=== PATIENT | male | born 2000 | race Hispanic/Latino ===

== ENCOUNTER 2021-08-28 07:13 | Day surgery (SDC) | payer SELFPAY ==
[2021-08-28] MEDS ORDERED: NA CHLORIDE 0.9% 1,000 ML ONE (07:40)
[2021-08-28] MEDS ORDERED: ONDANSETRON 4 MG/2 ML VIAL ONE ×2 (07:40→12:17)
[2021-08-28] MEDS ORDERED: FAMOTIDINE 20 MG/2 ML VIAL IV ONE (07:40)
[2021-08-28 08:00] LABS: Absolute Lymphocytes (CBC) 1.4 K/uL (0.7-4.9); Lymphocytes % 10.6 % (15.3-44.8); MPV 8.3 fL (7.6-11.3); RBC Red Blood Cell Count 4.96 M/uL (4.33-5.43)
[2021-08-28 08:22] LABS: ALT/SGPT 20 U/L (12-78); AST/SGOT 16 U/L (15-37); Albumin 3.9 g/dL (3.4-5.0); Alkaline Phosphatase 83 U/L (45-117); BUN Blood Urea Nitrogen 11 mg/dL (7-18); Bicarbonate 25 mmol/L (21-32); Bilirubin Total 0.5 mg/dL (0.2-1.0); Glucose Level 147 mg/dL (74-106); Lipase 78 U/L (73-393); Potassium 3.4 mmol/L (3.5-5.1); Protein, Total 8.1 g/dL (6.4-8.2); Sodium Level 136 mmol/L (136-145)
[2021-08-28 09:00] LABS: Urine Blood Negative (Negative); Urine Glucose Negative (Negative); Urine Protein Negative (Negative); Urine pH 8.5 (5.0-7.0)
[2021-08-28] MEDS ORDERED: MORPHINE 4 MG/ML SYR ONE ×2 (09:49→13:10)
--- NOTE | 2021-08-28 10:32 | RAD REPORT ---
EXAM DESCRIPTION: CT - Abdomen Pelvis W Contrast - 08/28/2021 9:57 am CLINICAL HISTORY: Abdominal pain COMPARISON: none. TECHNIQUE: Computed axial tomography of the abdomen pelvis was obtained. 100 cc Isovue-300 was admin istered intravenously. Oral contrast was not requested which limits evaluation of bowel. All CT scans are performed using dose optimization technique as appropriate and may include automated exposure control or mA/KV adjustment according to patient size. FINDINGS: The liver, spleen, pancreas, adrenal and kidneys appear unremarkable. There is no evidence of diverticulitis. Stones are present within the appendix. The appendix is dilated. The appendix extends inferiorly and medially from the cecum. No abscess. No significant free fluid. No free air IMPRESSION: Appendicitis
[2021-08-28] MEDS ORDERED: METRONIDAZOLE 500mg IVPB 500 MG/100 ML BAG IV ONE (10:51)
[2021-08-28] MEDS ORDERED: CIPROFLOXACIN 400mg IV 400 MG/200 ML BAG IV ONE (10:51)
--- NOTE | 2021-08-28 11:00 | ER ---
Nurse's Notes [facility] Name: Juanito Jung Age: 21 yrs Sex: Male : 2000 Arrival Date: 08/28/2021 Time: 07:19 Bed 19 [facility] MD: Diagnosis: Unspecified acute appendicitis Presentation: 08/28 07:20 Chief complaint: Patient states: lower abd pain that began at 3 am. Denies aa5 nausea/vomiting/diarrhea. 07:20 Coronavirus screen: At this time, the client does not indicate any symptoms associated aa5 with coronavirus-19. Ebola Screen: No symptoms or risks identified at this time. Initial Sepsis Screen: Does the patient meet any 2 criteria? No. Patient's initial sepsis screen is negative. Does the patient have a suspected source of infection? No. Patient's initial sepsis screen is negative. Risk Assessment: Do you want to hurt yourself or someone else? Patient reports no desire to harm self or others. Onset of symptoms was August 28, 2021. 07:20 Acuity: JOSEFINA 3 aa5 07:20 Method Of Arrival: Ambulatory aa5 Historical: - Allergies: 07:32 No Known Allergies; aa5 - PMHx: 07:32 None; aa5 - PSHx: 07:32 None; aa5 - Immunization history:: Adult Immunizations unknown. - Social history:: Smoking status: Reported history of juuling and/or vaping. Patient uses street drugs, marijuana. Screenin:35 Abuse screen: Denies threats or abuse. Nutritional screening: No deficits noted. ap3 Tuberculosis screening: No symptoms or risk factors identified. Fall Risk No fall in past 12 months (0 pts). No secondary diagnosis (0 pts). IV access (20 points). Ambulatory Aid- None/Bed Rest/Nurse Assist (0 pts). Gait- Normal/Bed Rest/Wheelchair (0 pts) Mental Status- Oriented to own ability (0 pts). Total Rea Fall Scale indicates No Risk (0-24 pts). Assessment: 07:34 General: Appears uncomfortable, Behavior is cooperative. Pain: Complains of pain in ap3 right lower quadrant and left lower quadrant. Neuro: Level of Consciousness is awake, alert, obeys commands, Oriented to person, place, time, situation, Speech is normal. Respiratory: Airway is patent Respiratory effort is even, unlabored, Respiratory pattern is regular, symmetrical. GI: Pt is actively vomiting Reports nausea, vomiting. 07:49 GI: Bowel sounds present X 4 quads. Abd is soft X 4 quads Abd is non tender. : Denies ap3 burning with urination. 08:55 Reassessment: Patient and/or family updated on plan of care and expected duration. Pain ap3 level reassessed. Patient is alert, oriented x 3, equal unlabored respirations, skin warm/dry/pink. patient reports continued abdominal pain. provider notified, new orders received. 10:01 Reassessment: Patient and/or family updated on plan of care and expected duration. Pain ap3 level reassessed. Patient is alert, oriented x 3, equal unlabored respirations, skin warm/dry/pink. 11:15 Reassessment: report given to JESSICA Keating. ap3 11:17 Reassessment: patient transferred to the OR with JESSICA Keating. ap3 Vital Signs: 07:20 BP 140 / 96; Pulse 59; Resp 18 S; Temp 98.3(TE); Pulse Ox 100% on R/A; Weight 70.31 kg aa5 (R); Height 5 ft. 8 in. (172.72 cm) (R); Pain 10/10; 08:13 BP 108 / 75; Pulse 52; Pulse Ox 98% on R/A; ap3 09:02 BP 108 / 75; Pulse 53; Pulse Ox 98% on R/A; ap3 11:14 BP 115 / 84; Pulse 68; Pulse Ox 98% on R/A; ap3 07:20 Body Mass Index 23.57 (70.31 kg, 172.72 cm) aa5 ED Course: 07:19 Patient arrived in ED. ds1 07:20 Arm band placed on Patient placed in an exam room, on a stretcher. aa5 07:22 Marvin Abreu PA is PHCP. jmm 07:22 Amos Mirza DO is Attending Physician. jmm 07:23 Ira Morales, JESSICA is Primary Nurse. ap3 07:32 Triage completed. aa5 07:35 Patient has correct armband on for positive identification. Bed in low position. Call ap3 light in reach. Side rails up X 1. Adult w/ patient. Pulse ox on. NIBP on. Door closed. Noise minimized. 07:43 Inserted saline lock: 20 gauge in right antecubital area, using aseptic technique. ap3 Blood collected. 09:57 CT Abd/Pelvis - IV Contrast Only In Process Unspecified. EDMS 11:00 Morro Mccabe MD is Hospitalizing Provider. jmm Administered Medications: 07:48 Drug: NS 0.9% 1000 ml Route: IV; Rate: 1 bolus; Site: right antecubital; ap3 09:48 Follow up: IV Status: Completed infusion; IV Intake: 1000ml ap3 07:48 Drug: Pepcid (famotidine) 20 mg Route: IVP; Site: right antecubital; ap3 09:01 Follow up: Response: No adverse reaction ap3 07:49 Drug: Zofran (Ondansetron) 4 mg Route: IVP; Site: right antecubital; ap3 09:01 Follow up: Response: No adverse reaction; Nausea is decreased ap3 09:00 Drug: Benadryl (diphenhydrAMINE) 12.5 mg Route: IVP; Site: right antecubital; ap3 09:48 Follow up: Response: No adverse reaction ap3 09:00 Drug: Reglan (metoCLOPramide) 10 mg Route: IVP; Site: right antecubital; ap3 09:47 Follow up: Response: No adverse reaction ap3 09:47 Drug: morphine 4 mg Route: IVP; Site: right antecubital; ap3 11:08 Follow up: Response: No adverse reaction; Pain is decreased ap3 11:00 Drug: Cipro (ciprofloxacin) 400 mg Volume: 200 ml; Route: IVPB; Infused Over: 60 mins; ap3 Site: right antecubital; 11:16 Follow up: IV Status: Infusion continued upon transfer ap3 11:08 Drug: Flagyl (metroNIDAZOLE) 500 mg Volume: 100 ml; Route: IVPB; Rate: 200 ml/hr; ap3 Infused Over: 30 mins; Site: right antecubital; 11:17 Follow up: IV Status: Infusion continued upon transfer ap3 Intake: 09:48 IV: 1000ml; Total: 1000ml. ap3 Outcome: 11:00 Decision to Hospitalize by Provider. greg 11:21 Patient left the ED. ap3 Signatures: Dispatcher [employer] EDMS Mickail, Marvin, PA PA jmm Ramirez, Airam ds1 Yvrose Jose, RN RN aa5 Ira Morales RN RN ap3
--- NOTE | 2021-08-28 11:00 | EDPHYS ---
Physician Documentation [facility] Name: Juanito Jung Age: 21 yrs Sex: Male : 2000 Arrival Date: 08/28/2021 Time: 07:19 Bed 19 Private MD: ED Physician Amos Mirza HPI: 08/28 07:30 This 21 yrs old Male presents to ER via Ambulatory with complaints of jmm Abdominal Pain. 07:30 The patient presents with abdominal pain. Onset: The symptoms/episode began/occurred jmm acutely, this morning, at 03:00. The symptoms do not radiate. Associated signs and symptoms: Pertinent positives: nausea and vomiting. The symptoms are described as achy, sharp. Modifying factors: The symptoms are alleviated by the symptoms are aggravated by nothing. It is unknown whether or not the patient has had similar symptoms in the past. Historical: - Allergies: 07:32 No Known Allergies; aa5 - PMHx: 07:32 None; aa5 - PSHx: 07:32 None; aa5 - Immunization history:: Adult Immunizations unknown. - Social history:: Smoking status: Reported history of juuling and/or vaping. Patient uses street drugs, marijuana. ROS: 07:30 Constitutional: Negative for fever, chills, and weight loss, Cardiovascular: Negative jmm for chest pain, palpitations, and edema, Respiratory: Negative for shortness of breath, cough, wheezing, and pleuritic chest pain. 07:30 Abdomen/GI: Positive for abdominal pain, nausea, vomiting. 07:30 All other systems are negative. Exam: 07:30 Head/Face: atraumatic. Eyes: EOMI, no conjunctival erythema appreciated ENT: Moist jmm Mucus Membranes Neck: Trachea midline, Supple Chest/axilla: Normal chest wall appearance and motion. Cardiovascular: Regular rate and rhythm. No edema appreciated Respiratory: Normal respirations, no respiratory distress appreciated 07:30 Back: Normal ROM Skin: General appearance color normal MS/ Extremity: Moves all extremities, no obvious deformities appreciated, no edema noted to the lower extremities Neuro: Awake and alert Psych: Behavior is normal, Mood is normal, Patient is cooperative and pleasant 07:30 Constitutional: The patient appears alert, awake, uncomfortable. 07:30 Abdomen/GI: Inspection: abdomen appears normal, Bowel sounds: normal, Palpation: soft, in the right upper quadrant, left upper quadrant, right lower quadrant and left lower quadrant, mild abdominal tenderness, in the left upper quadrant and left lower quadrant. Vital Signs: 07:20 BP 140 / 96; Pulse 59; Resp 18 S; Temp 98.3(TE); Pulse Ox 100% on R/A; Weight 70.31 kg aa5 (R); Height 5 ft. 8 in. (172.72 cm) (R); Pain 10/10; 08:13 BP 108 / 75; Pulse 52; Pulse Ox 98% on R/A; ap3 09:02 BP 108 / 75; Pulse 53; Pulse Ox 98% on R/A; ap3 11:14 BP 115 / 84; Pulse 68; Pulse Ox 98% on R/A; ap3 07:20 Body Mass Index 23.57 (70.31 kg, 172.72 cm) aa5 MDM: 07:32 Patient medically screened. [facility] 10:59 Data reviewed: vital signs, nurses notes. Counseling: I had a detailed discussion with [facility] the patient and/or guardian regarding: the historical points, exam findings, and any diagnostic results supporting the discharge/admit diagnosis, lab results, radiology results, the need for further work-up and treatment in the hospital. ED course: I discussed the patient with Dr. Mccabe whom accepted the patient to his service. . 08/28 07:36 Order name: CBC with Diff [facility] 08/28 07:36 Order name: CMP [facility] 08/28 07:36 Order name: Lipase; Complete Time: 08:27 [facility] 08/28 07:37 Order name: CBC with Automated Diff; Complete Time: 08:06 [facility] 08/28 07:37 Order name: Comprehensive Metabolic Panel; Complete Time: 08:27 [facility] 08/28 09:00 Order name: Urine Dipstick-Ancillary; Complete Time: 09:00 [facility] 08/28 09:41 Order name: CT Abd/Pelvis - IV Contrast Only; Complete Time: 10:36 [facility] 08/28 11:08 Order name: COVID-19 SARS RT PCR (Document "Date of Onset" if Symptomatic) bd 08/28 07:36 Order name: IV Saline Lock; Complete Time: 07:48 [facility] 08/28 07:36 Order name: Labs collected and sent; Complete Time: 07:48 [facility] 08/28 07:36 Order name: Urine Dipstick-Ancillary (obtain specimen); Complete Time: 09:01 [facility] Administered Medications: 07:48 Drug: NS 0.9% 1000 ml Route: IV; Rate: 1 bolus; Site: right antecubital; ap3 09:48 Follow up: IV Status: Completed infusion; IV Intake: 1000ml ap3 07:48 Drug: Pepcid (famotidine) 20 mg Route: IVP; Site: right antecubital; ap3 09:01 Follow up: Response: No adverse reaction ap3 07:49 Drug: Zofran (Ondansetron) 4 mg Route: IVP; Site: right antecubital; ap3 09:01 Follow up: Response: No adverse reaction; Nausea is decreased ap3 09:00 Drug: Benadryl (diphenhydrAMINE) 12.5 mg Route: IVP; Site: right antecubital; ap3 09:48 Follow up: Response: No adverse reaction ap3 09:00 Drug: Reglan (metoCLOPramide) 10 mg Route: IVP; Site: right antecubital; ap3 09:47 Follow up: Response: No adverse reaction ap3 09:47 Drug: morphine 4 mg Route: IVP; Site: right antecubital; ap3 11:08 Follow up: Response: No adverse reaction; Pain is decreased ap3 11:00 Drug: Cipro (ciprofloxacin) 400 mg Volume: 200 ml; Route: IVPB; Infused Over: 60 mins; ap3 Site: right antecubital; 11:16 Follow up: IV Status: Infusion continued upon transfer ap3 11:08 Drug: Flagyl (metroNIDAZOLE) 500 mg Volume: 100 ml; Route: IVPB; Rate: 200 ml/hr; ap3 Infused Over: 30 mins; Site: right antecubital; 11:17 Follow up: IV Status: Infusion continued upon transfer ap3 Disposition Summary: 08/28/21 11:00 Hospitalization Ordered Hospitalization Status: Observation marlin Provider: Morro Mccabe Location: Operating Room [facility] Condition: Stable greg Problem: new greg Symptoms: are unchanged greg Bed/Room Type: Standard [facility] Room Assignment: [facility] Diagnosis - Unspecified acute appendicitis [facility] Forms: - Medication Reconciliation Form m - SBAR form [facility] Signatures: Dispatcher [employer] Marvin Patel PA PA jmm Calderon, Audri, RN RN aa5 Ira Morales, RN RN ap3
[2021-08-28] MEDS ORDERED: MIDAZOLAM HCL 2 MG/2 ML INJ ONE (11:12)
[2021-08-28] MEDS ORDERED: propofoL 200 MG/20 ML VIAL IV ONE ×2 (11:12→11:34)
[2021-08-28] MEDS ORDERED: FENTANYL CITR 100 MCG/2 ML ONE (11:12)
[2021-08-28] MEDS ORDERED: ROCURONIUM 50 MG/5 ML VIAL IV ONE ×3 (11:12→11:34)
[2021-08-28] MEDS ORDERED: LIDOCAINE 1% MPF 2 ML AMPULE ONE (11:12)
[2021-08-28] MEDS ORDERED: Ringers Lactate 1,000 ML IV ONE ×2 (11:29→11:30)
[2021-08-28] MEDS ORDERED: LIDOCAINE 2% MPF 5 ML VIAL ONE (11:35)
--- NOTE | 2021-08-28 12:28 | HP ---
Date of Admission: 08/28/2021 History Of Present Illness: Mr. Pereyra is a 21-year-old patient, woke up this morning at 3 o'clock in the morning with abdominal pain associated with nausea and vomiting, starting in the periumbilical area and moved to the right lower quadrant. The patient was brought to the ER and in the ER, found to have acute appendicitis and a surgical evaluation was obtained immediately. He denies any trauma, dysuria, hematuria, hematochezia, melena. Denies any recent traveling out of the country. [place] a [place] family member sick at home. Review of Systems: Nausea, vomiting, abdominal pain. Ten points otherwise unremarkable. Allergies: NO KNOWN ALLERGIES. Medications: None. Past Medical History: Medical problems none. Past Surgical History: None. Social History: The patient has history of Vaping. He was counseled the importance of a drug cessat ion and he was counseled about that. These are social habits. Physical Examination: General: The patient is awake, alert. HEENT: Pupils are equal and reactive. Anicteric. Neck: Supple. Chest: Clear. Abdomen: Right lower quadrant tenderness with guarding and rebound. Psoas signs positive. Rectal: Deferred. Genitalia: Deferred. Extremities: Good capillary refill. Neuro: Cranial nerves 2 through 12 grossly within normal limits. Laboratory Data: Labs show WBC count of 12.8 with hemoglobin of 15.2 and potassium of 3.4. Urine ni trates negative. CAT scan of abdomen and pelvis interpreted by Dr. Tate as acute appendicitis. Assessment: This is a 21-year-old patient, who comes to us with acute appendicitis. Plan: The patient fully explained the benefits, alternatives, and risks of laparoscopic possible ope n appendectomy with benefits, alternatives, and risks including, but not limited to infection, bleedi ng, damage to adjacent structures, anesthesia complication, abscess, [place], and even . He also und erstands this may not relieve any symptoms. He might need more than one surgical intervention. He w as also advised about his condition. The OR was notified and scheduled immediately. AMBROSE/YAZ Voice ID: [id number]
--- NOTE | 2021-08-28 12:28 | P.BOP ---
Preoperative diagnosis: Acute appendicitis Postoperative diagnosis: same Primary procedure: Laparoscopic appendectomy Neck Band Operator: AZEEM SHEN ([employer]) Estimated blood loss: <10cc Specimen: kobe Findings: as above Anesthesia: General Complications: None Fluids & blood products: no blood Transferred to: Recovery Room Condition: Good
[2021-08-28] MEDS ORDERED: CODEINE 30MG/APAP 300MG TAB PO PRN (12:35)
[2021-08-28] MEDS ORDERED: ONDANSETRON 4 MG (ODT) TAB PO PRN (12:35)
[2021-08-28] MEDS ORDERED: GLYCOPYRROLATE 0.2 MG/ML SYR ONE ×2 (12:37→12:38)
[2021-08-28] MEDS ORDERED: MEPERIDINE HCL 25 MG/ML SYR ONE (13:16)
[2021-08-28 13:51] VITALS: BP 132/89; TEMP 97.4; O2SAT 100
--- NOTE | 2021-08-28 14:13 | DS ---
Diagnosis: Acute appendicitis. Procedure: Laparoscopic appendectomy. Plan: The patient will be observed in recovery and in day surgery. If the patient is able to tolera te fluid, he will be discharged home. Follow up in my office in 1 week. Call for appointment at [phone]. Medications: Will include Augmentin 875 p.o. q.12, Zofran 4 q.6 p.r.n. nausea, and Tylenol No.3 q.4 hours p.r.n. pain. Keep the area dry for 48 hours, then may shower. Keep amado intact. Activities: As tolerated. No heavy lifting. Condition: Stable. Disposition: Home. AMBROSE/YAZ Voice ID: [id number] Report ID: [id number]
--- NOTE | 2021-08-28 14:13 | OP ---
Date of Procedure: 08/28/2021 Surgeon: Morro Mccabe MD Preoperative Diagnosis: Acute appendicitis. Postoperative Diagnosis: Acute appendicitis. Procedure: Laparoscopic appendectomy. Anesthesia: General plus local. Complications: None. Estimated Blood Loss: Less than 10 mL. Indication: This is the case of a 21-year-old patient, who comes with abdominal pain from today, [place] gnosed with acute appendicitis. Fully explained the benefits, alternatives, and risks of laparoscopi c possible open appendectomy, which include, but not limited to infection, bleeding, damage to adjace nt structures, anesthesia complication, [place], and even . He also understands this may not relieve any symptoms. He might need more than one surgical intervention. He understood, signed a consent. Procedure In Detail: The patient was brought to the operating room, placed in supine position. Anes thesia was done without complication. Abdominal area was prepped and draped in the usual sterile fas hion. Marcaine 0.5% was injected for local anesthetic followed by sharp incision of the skin in the infraumbilical region. Incision was carried down to fascia, which was opened under direct vision. P eritoneum was encountered, opened under direct vision. Vicryl #1 placed inside the fascia. Sterling t rocar was carefully introduced. Pneumoperitoneum was obtained. I placed 2 more trocars under direct visualization in the suprapubic area and left lower quadrant. Those are 5 mm trocars. This allowed me to see an inflamed appendix. The base of the appendix seems to be spared for this, so we created a window at the base of the appendix, transected that with an Endo-ALLYSON 45 mm, and then the mesoappen violet with an Endo ALLYSON 45 mm vascular. Appendix was removed from abdominal cavity using an EndoCatch t hrough the umbilical incision. The area was inspected once again. No bile leak. No bleeding after irrigation. At that moment, I proceeded to remove the trocars under direct vision. Deflated pneumop eritoneum. Closed the fascia with #1 Vicryl. Irrigated the subcutaneous tissue, closed that with 3- 0 chromic, and skin with amado. Sponge count and instrument counts correct. The patient tolerated the procedure well. The patient is on his way to recovery in stable condition. AMBROSE/YAZ Voice ID: [id number] Report ID: [id number]
== END 2021-08-28 14:05 | disposition home or self-care (01) ==
LOC: ER 07:13 → OR 12:23
PROVIDERS: ATTEND Surgery
PROC: 0DTJ4ZZ Resection of Appendix, Percutaneous Endoscopic Approach (ICD-10-PCS; principal; 2021-08-28 11:15)
DX: K35.80 Unspecified acute appendicitis (principal); Z20.822 Contact with and (suspected) exposure to COVID-19
CPT/HCPCS: 36415; 74177; 80053; 81003; 83690; 85025; 88304; 96361; 96365; 96375; 99284; J0744; J2175; J2250; J2405; J2704; J3010; J7030; J7120; U0003